=== PATIENT | female | born 1975 | race Caucasian/White ===

== ENCOUNTER 2016-10-06 08:35 | Emergency (ER) | payer OTHER | END 2016-10-06 10:35 | disposition home or self-care (01) | DX: S90.32XA Contusion of left foot, initial encounter (principal); X58.XXXA Exposure to other specified factors, initial encounter; Y99.0 Civilian activity done for income or pay; F17.200 Nicotine dependence, unspecified, uncomplicated ==

== ENCOUNTER 2017-02-16 14:05 | Emergency (ER) | payer OTHER ==
[2017-02-16 14:11] VITALS: BP 123/72
[2017-02-16] MEDS ORDERED: CYCLOBENZAPRINE 10 MG TABLET PO STA (14:28)
--- NOTE | 2017-02-16 14:31 | ED Physician Documentation ---
PD HPI BACK INJURY - Stated complaint Stated Complaint: BACK/NECK PX - History obtained from History obtained from: Patient, Family - History of Present Illness Type of injury: Other (41-year-old woman with a history of chronic and intermittent neck and back problems from previous injuries was doing some housework today and her low back spasmed up on her. The pain is in the lumbar area and does not radiate, there is no weakness, numbness, or tingling. 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, Other - Present Medications Home Medications: Ambulatory Orders Medication Instructions Recorded Confirmed Hydrocodone/Acetaminophen [[place] 1 each PO Q6H PRN #15 tablet 10/06/16 5-325 Tablet] Cyclobenzaprine [Flexeril] 10 mg PO TID PRN #20 tablet 02/16/17 - Allergies Allergies/Adverse Reactions: Allergies Allergy/AdvReac Type Severity Reaction Status Date / Time adhesive Allergy Rash Verified 10/06/16 08:44 latex Allergy Rash Verified 10/06/16 08:44 meperidine HCl * Allergy Nausea Verified 10/06/16 08:44 [From Demerol] - Social History Does the pt smoke?: Yes Smoking Status: Current some day smoker Does the pt drink ETOH?: Yes Does the pt have substance abuse?: No - Immunizations Immunizations are current?: Yes - POLST Patient has POLST: No PD ED PE NORMAL - Vitals Vital signs reviewed: Yes - General General: Alert and oriented X 3, No acute distress - Neck Neck: No bony TTP, Other (Some mild muscular tenderness of the neck but full range of motion) - Back Back: Other (Paralumbar muscle tenderness of the low back without midline tenderness. The patient has equal and normal Achilles and patellar reflexes bilaterally. Normal sensation in all areas of the legs. Patient denies saddle anesthesia. Normal strength in flexion-extension at the ankles, knees, and flexion of the hips.) - Neuro Neuro: Alert and oriented X 3, Normal speech - Psych Psych: Normal mood, Normal affect Results - Vitals Vitals: Vital Signs - 24 hr 02/16/17 14:08 Temperature 36.5 C Heart Rate 90 Respiratory 18 Rate Blood Pressure 123/72 O2 Saturation 99 Oxygen O2 Source Room air PD MEDICAL DECISION MAKING - ED course ED course: The [place] prescription monitoring program was queried with regard to this patient. No concerning findings were found. Departure - Departure Disposition: 01 Home, Self Care Clinical Impression: Back muscle spasm, Neck muscle spasm Condition: Good Record reviewed to determine appropriate education?: Yes Instructions: ED Spasm Back No Trauma, ED Spasm Neck No Injury Prescriptions: Cyclobenzaprine [Flexeril] 10 mg PO TID PRN #20 tablet PRN Reason: Pain Comments: Follow-up with your physician next Sunday as scheduled. Return if worse. Do not drink or drive While taking the prescription muscle relaxer. You can take ibuprofen in addition to this.
[2017-02-16] MEDS ORDERED: CYCLOBENZAPRINE 10 MG TABLET PO ONE (14:39)
== END 2017-02-16 14:57 | disposition home or self-care (01) ==
LOC: ED 14:05
DX: M62.830 Muscle spasm of back (principal); M62.838 Other muscle spasm
CPT/HCPCS: 99283; A9270

== ENCOUNTER 2017-10-21 16:32 | Emergency (ER) | payer OTHER ==
[2017-10-21 16:38] VITALS: BP 123/63
[2017-10-21] MEDS ORDERED: HYDROcod/ACETAM 5/325 MG TABLET PO STA (17:14)
[2017-10-21] MEDS ORDERED: CYCLOBENZAPRINE 10 MG TABLET PO STA (17:14)
--- NOTE | 2017-10-21 17:16 | ED Physician Documentation ---
PD HPI BACK PAIN - Stated complaint Stated Complaint: BACK PX - Chief complaint Chief Complaint: Back Pain - History obtained from History obtained from: Patient - History of Present Illness Timing - onset: Today (This is a young woman with chronic low back pain, bothers her on a daily basis but usually not debilitating. After lifting a heavy piece of fencing at [employer] today the pain is much worse, it is in the left lumbar spine and does not radiate. There is no weakness, numbness, tingling with it. No saddle anesthesia or fevers. No possibility of . 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, Other - Present Medications Home Medications: Ambulatory Orders Medication Instructions Recorded Confirmed Cyclobenzaprine [Flexeril] 10 mg PO TID PRN #20 tablet 10/21/17 HYDROcod/ACETAM 5/325 [[place] 5/325] 1 - 2 ea PO Q6H PRN #15 tablet 10/21/17 Sertraline [Zoloft] 50 mg PO DAILY 10/21/17 10/21/17 - Allergies Allergies/Adverse Reactions: Allergies Allergy/AdvReac Type Severity Reaction Status Date / Time adhesive Allergy Rash Verified 10/21/17 16:38 latex Allergy Rash Verified 10/21/17 16:38 meperidine HCl * Allergy Nausea Verified 10/21/17 16:38 [From Demerol] - Social History Does the pt smoke?: Yes Smoking Status: Current some day smoker Does the pt drink ETOH?: Yes Does the pt have substance abuse?: No - Immunizations Immunizations are current?: Yes - POLST Patient has POLST: No PD ED PE NORMAL - Vitals Vital signs reviewed: Yes - General General: Alert and oriented X 3, No acute distress - Abdomen Abdomen: Normal bowel sounds, Soft, Non tender - Back Back: No spinal TTP, Other (Winces with motion, tender to the left paralumbar musculature. The patient has equal and normal Achilles and patellar reflexes bilaterally. Normal sensation in all areas of the legs. Patient denies saddle anesthesia. Normal strength in flexion-extension at the ankles, knees, and flexion of the hips.) Results - Vitals Vitals: Vital Signs - 24 hr 10/21/17 16:35 Temperature 36.5 C Heart Rate 85 Respiratory 20 Rate Blood Pressure 123/63 O2 Saturation 100 Oxygen O2 Source Room air PD MEDICAL DECISION MAKING - ED course ED course: This patient has seemingly uncomplicated musculoskeletal back pain. The patient has no "red flags." Specifically denies IV drug use, fevers, incontinence, saddle anesthesia. Spinal epidural abscess was considered, given that the patient has no fever, is not diabetic, has no spinal tenderness, does not use IV drugs, and has no bilateral neurologic symptoms, the diagnosis of spinal epidural abscess is considered exceedingly unlikely. The [place] prescription monitoring program was queried with regard to this patient. No concerning findings were found. Departure - Departure Disposition: 01 Home, Self Care Clinical Impression: Back pain Qualifiers: Back pain location: low back pain Chronicity: acute Back pain laterality: left Sciatica presence: without sciatica Qualified Code(s): M54.5 - Low back pain Condition: Good Record reviewed to determine appropriate education?: Yes Instructions: ED Neck Back Pain General Prescriptions: Cyclobenzaprine [Flexeril] 10 mg PO TID PRN #20 tablet PRN Reason: Pain HYDROcod/ACETAM 5/325 [[place] 5/325] 1 - 2 ea PO Q6H PRN #15 tablet PRN Reason: Pain Comments: Call your doctor to arrange a follow-up appointment, make the next available appointment. In the interim, return anytime if worse or if new symptoms develop. Do not drink or drive while taking narcotic pain medication. Note that many narcotic pain relievers also contain Tylenol/acetaminophen. Please ensure that your total dose of acetaminophen from all sources does not exceed 3 g (3000 mg) per day. You may get constipated while on this medication. Take a stool softener such as Colace twice a day while you are on it. Also add an [id number]-[id number] laxative such as senna or MiraLAX on any day that you do not have a bowel movement. If you received a narcotic pain medication or sedative while in the emergency department, do not drive for the next 24 hours.
== END 2017-10-21 17:26 | disposition home or self-care (01) ==
LOC: ED 16:32
DX: M54.5 Low back pain (principal); G89.29 Other chronic pain; X50.0XXA Overexertion from strenuous movement or load, initial encounter; Y93.89 Activity, other specified; Y92.512 Supermarket, store or market as the place of occurrence of the external cause; F17.200 Nicotine dependence, unspecified, uncomplicated
CPT/HCPCS: 99283; A9270

== ENCOUNTER 2017-10-28 14:23 | Emergency (ER) | payer OTHER ==
--- NOTE | 2017-10-28 14:44 | ED Physician Documentation ---
PD HPI BACK INJURY - Stated complaint Stated Complaint: LOWER BACK PX - History obtained from History obtained from: Patient - History of Present Illness Location: Other (She has chronic low back pain. Flared last week after lifting. Worse this AM and worsened when rolling over in bed. Sharp pain in the low lumbar spine. No weak/numb/tingling. 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, Other - Present Medications Home Medications: Ambulatory Orders Medication Instructions Recorded Confirmed Cyclobenzaprine [Flexeril] 10 mg PO TID PRN #20 tablet 10/21/17 HYDROcod/ACETAM 5/325 [[place] 5/325] 1 - 2 ea PO Q6H PRN #15 tablet 10/21/17 Sertraline [Zoloft] 50 mg PO DAILY 10/21/17 10/21/17 Meloxicam [Mobic] 7.5 mg PO BIDWM PRN #15 tablet 10/28/17 diazePAM [Valium] 5 mg PO TID PRN #15 tablet 10/28/17 - Allergies Allergies/Adverse Reactions: Allergies Allergy/AdvReac Type Severity Reaction Status Date / Time adhesive Allergy Rash Verified 10/28/17 14:37 latex Allergy Rash Verified 10/28/17 14:37 meperidine HCl * Allergy Nausea Verified 10/28/17 14:37 [From Demerol] - Social History Does the pt smoke?: Yes Smoking Status: Current every day smoker Does the pt drink ETOH?: Yes Does the pt have substance abuse?: No - Immunizations Immunizations are current?: Yes - POLST Patient has POLST: No PD ED PE NORMAL - Vitals Vital signs reviewed: Yes - General General: Alert and oriented X 3, Other (Uncomfortable and winces with motion) - Abdomen Abdomen: Normal bowel sounds, Soft, Non tender - Back Back: No spinal TTP, Other (Tender to the left paralumbar musculature) - Extremities Extremities: Other (She has nondermatomal decreased but not absent sensation in the left leg throughout. Slightly increased patellar reflex in the left leg compared to the right. Gait is normal.) - Neuro Neuro: Alert and oriented X 3, Normal speech Results - Vitals Vitals: Vital Signs - 24 hr 10/28/17 14:25 Temperature 36.1 C L Heart Rate 105 H Respiratory 16 Rate Blood Pressure 124/66 O2 Saturation 100 Oxygen O2 Source Room air PD MEDICAL DECISION MAKING - ED course ED course: This patient has seemingly uncomplicated musculoskeletal back pain. The patient has no "red flags." Specifically denies IV drug use, fevers, incontinence, saddle anesthesia. Spinal epidural abscess was considered, given that the patient has no fever, is not diabetic, has no spinal tenderness, does not use IV drugs, and has no bilateral neurologic symptoms, the diagnosis of spinal epidural abscess is considered exceedingly unlikely. The [place] prescription monitoring program was queried with regard to this patient. No concerning findings were found. Departure - Departure Disposition: 01 Home, Self Care Clinical Impression: Back pain Qualifiers: Back pain location: low back pain Chronicity: acute Back pain laterality: left Sciatica presence: without sciatica Qualified Code(s): M54.5 - Low back pain Condition: Good Record reviewed to determine appropriate education?: Yes Instructions: ED Low Back Pain Injury Prescriptions: diazePAM [Valium] 5 mg PO TID PRN #15 tablet PRN Reason: Spasms Meloxicam [Mobic] 7.5 mg PO BIDWM PRN #15 tablet PRN Reason: Pain Comments: Discontinue taking Flexeril, the volume is a stronger muscle relaxer. Follow through for physical therapy as arranged by your physician.
[2017-10-28] MEDS ORDERED: KETOROLAC 60 MG/2 ML VIAL IM STA (14:48)
[2017-10-28] MEDS ORDERED: diazePAM INJ 5 MG/ML SYRINGE IM STA (14:48)
[2017-10-28] MEDS ORDERED: LORazepam 2 MG/ML VIAL IM STA (14:55)
[2017-10-28 16:05] VITALS: BP 109/66
== END 2017-10-28 15:57 | disposition home or self-care (01) ==
LOC: ED 14:23
DX: M54.5 Low back pain (principal); F17.200 Nicotine dependence, unspecified, uncomplicated
CPT/HCPCS: 96372; 99283; J2060

== ENCOUNTER 2018-09-11 21:32 | Emergency (ER) | payer OTHER ==
[2018-09-11] MEDS ORDERED: HYDROcod/ACETAM 5/325 MG TABLET PO STA (22:11)
--- NOTE | 2018-09-11 22:17 | ED Physician Documentation ---
History of Present Illness - Stated complaint Stated Complaint: R KNEE PX - Chief complaint Chief Complaint: Ext Problem - History obtained from History obtained from: Patient - History of Present Illness Timing: Other (3 months) Pain level max: 7 Pain level now: 6 - Additonal information Additional information: 43-year-old female with right knee pain for the past 3 months. Has not seen her doctor yet. Has had problems with his knee in the past. An MRI in 2014 showed some cartilage breakdown underneath the patella. Worse with walking. Better with rest and ibuprofen. Has had physical therapy 3 times in the past for this knee. No injury at this time. 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, Other - Present Medications Home Medications: Ambulatory Orders Medication Instructions Recorded Confirmed Cyclobenzaprine [Flexeril] 10 mg PO TID PRN #20 tablet 10/21/17 HYDROcod/ACETAM 5/325 [[place] 5/325] 1 - 2 ea PO Q6H PRN #15 tablet 10/21/17 Sertraline [Zoloft] 50 mg PO DAILY 10/21/17 10/21/17 Meloxicam [Mobic] 7.5 mg PO BIDWM PRN #15 tablet 10/28/17 diazePAM [Valium] 5 mg PO TID PRN #15 tablet 10/28/17 Hydrocodone/Acetaminophen 1 - 2 each PO Q6H PRN #10 tablet 09/11/18 [Hydrocodon-Acetaminophen 5-325] Meloxicam [Mobic] 15 mg PO DAILY PRN #20 tablet 09/11/18 - Allergies Allergies/Adverse Reactions: Allergies Allergy/AdvReac Type Severity Reaction Status Date / Time adhesive Allergy Rash Verified 09/11/18 21:49 latex Allergy Rash Verified 09/11/18 21:49 meperidine HCl * Allergy Nausea Verified 09/11/18 21:49 [From Demerol] - Social History Does the pt smoke?: Yes Smoking Status: Current every day smoker Does the pt drink ETOH?: Yes Does the pt have substance abuse?: No - Immunizations Immunizations are current?: Yes - POLST Patient has POLST: No PD ED PE NORMAL - Vitals Vital signs reviewed: Yes - General General: Alert and oriented X 3, No acute distress - HEENT HEENT: Moist mucous membranes - Derm Derm: Warm and dry - Extremities Extremities: Other (R knee - mild swelling, no bony tenderness. FROM present, increased pain with AROM. decreased with PROM. NVI, ACL, MCL, PCL, LCL are intact. 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 Her patella does appear to laterally displace when bending the knee. We will have her follow-up with her doctor for further care and likely referral to orthopedics for further evaluation. May need a repeat MRI. Do not feel that plain film x-rays will provide much information tonight. We will placed in a hinged knee brace for comfort and see if this takes some pressure off of the knee. We will also prescribe a small amount of pain medication for her. Patient counseled regarding signs and symptoms for which I believe and urgent re-evaluation would be necessary. Patient with good understanding of and agreement to plan and is comfortable going home at this time This document was made in part using voice recognition software. While efforts are made to proofread this document, sound alike and grammatical errors may occur. Departure - Departure Disposition: Home, Self Care Clinical Impression: Right knee pain Qualifiers: Chronicity: acute Qualified Code(s): M25.561 - Pain in right knee Condition: Good Instructions: ED Knee Pain [facility] Follow-Up: [facility] [Provider Group] [facility] [Provider Group] - Within 1 week Prescriptions: Hydrocodone/Acetaminophen [Hydrocodon-Acetaminophen 5-325] 1 - 2 each PO Q6H PRN #10 tablet PRN Reason: pain Meloxicam [Mobic] 15 mg PO DAILY PRN #20 tablet PRN Reason: pain Comments: Return if you worsen. Use the brace for the next 3-4 days. Follow up with your doctor for further care. Do not drink alcohol or drive while on narcotic pain medicine. Note that many narcotic pain relievers also contain tylenol/acetaminophen. Please ensure that your total dose of acetaminophen from all sources does not exceed 3 grams (3000mg) per day. You may constipated on this medication, take a stool softener such as "Colace" twice a day while you are on it. Also recommend a [id number] laxative such as senna or MiraLAX any day that you do not have a bowel movement. If you received narcotic pain medication in the emergency department, do not drive or operate machinery for the next 24 hours.
[2018-09-11 22:30] VITALS: BP 135/67
== END 2018-09-11 22:36 | disposition home or self-care (01) ==
LOC: ED 21:32
DX: M25.561 Pain in right knee (principal); F17.200 Nicotine dependence, unspecified, uncomplicated
CPT/HCPCS: 99283; A9270

== ENCOUNTER 2018-09-20 13:19 | Outpatient (CLI) | payer OTHER ==
--- NOTE | 2018-09-20 16:33 | MRI Report ---
Reason: PAIN IN UNSPECIFIED KNEE Procedure Date: 09/20/2018 Accession Number: [id number] / [id number] Procedure: MRI - Knee RT W/O CPT Code: FULL RESULT: EXAM: RIGHT KNEE MRI WITHOUT CONTRAST EXAM DATE: 09/20/2018 01:35 PM. CLINICAL HISTORY: PAIN IN UNSPECIFIED KNEE. COMPARISON: MRI 10/29/2014. TECHNIQUE: Multiplanar, multisequence T1-weighted and fluid-sensitive sequences of the knee without contrast. Other: None. FINDINGS: Bones: No fracture or bone lesion. Mild bone marrow edema and reactive cyst at the lateral patellar facet, slightly decreased. Articular Cartilage: Small foci of shallow partial thickness cartilage loss and fissuring/tearing central to posterior aspect medial compartment. Shallow partial thickness loss and irregularity/fissuring posterior aspect lateral tibial plateau. Deep partial to full-thickness fissuring/tearing at the mid to inferior patella. These findings are progressed. Medial Meniscus: The medial meniscus is intact. Lateral Meniscus: The lateral meniscus is intact. Cruciate Ligaments: The anterior and posterior cruciate ligaments are intact. Collateral Ligaments: The medial collateral and lateral collateral ligamentous structures are intact. Tendons: The quadriceps, patellar, semimembranosus, and popliteus tendons are unremarkable. Musculature: No edema or fatty atrophy. Other: Small to moderate joint effusion. No popliteal cyst. No loose bodies. The medial and lateral retinacula are intact. 0.8 cm ganglion at the posterior medial margin medial compartment. Minimal subcutaneous edema anteriorly. Mild edema in the superolateral aspect of Hoffa's fat pad and lateral aspect pre-femoral fat pad. New lobulated 1 cm cystic focus in the lateral aspect of Hoffa's fat pad. IMPRESSION: 1. Mild to moderate tricompartmental cartilage loss with fissuring/tearing, slightly progressed. 2. Menisci, cruciate ligaments, and collateral ligaments intact. 3. Small to moderate joint effusion. 4. Reactive edema versus impingement in the superolateral aspect of Hoffa's fat pad and lateral pre-femoral head. 5. New 1.0 cm lobulated focus of fluid, likely ganglion in the prefemoral fat pad. RADIA
== END 2018-09-20 13:20 | disposition home or self-care (01) ==
LOC: DI 13:19
PROVIDERS: ATTEND General Practice
DX: M23.91 Unspecified internal derangement of right knee (principal); M25.461 Effusion, right knee

== ENCOUNTER 2018-12-14 10:38 | Emergency (ER) | payer OTHER ==
[2018-12-14] MEDS ORDERED: LORazepam 0.5 MG TABLET PO STA (11:43)
[2018-12-14 11:59] LABS: BASOPHILS # (AUTO) 0.1 10^3/uL (0.0-0.1); BASOPHILS % (AUTO) 0.7 %; EOSINOPHILS # (AUTO) 0.3 10^3/uL (0.0-0.7); EOSINOPHILS % (AUTO) 3.7 %; HGB - HEMOGLOBIN 14.2 g/dL (12.0-16.0); LYMPHOCYTES # (AUTO) 1.4 10^3/uL (1.5-3.5); MEAN CORPUSCULAR HEMOGLOBIN 31.1 pg (27.0-31.0); MEAN CORPUSCULAR HGB CONC 35.6 g/dL (32.0-36.0); MEAN CORPUSCULAR VOLUME 87.3 fL (81.0-99.0); MEAN PLATELET VOLUME 8.8 fL (7.9-10.8); MONOCYTES # (AUTO) 0.6 10^3/uL (0.0-1.0); MONOCYTES % (AUTO) 8.5 %; NEUTROPHILS # (AUTO) 4.6 10^3/uL (1.5-6.6); NEUTROPHILS % (AUTO) 66.8 %; PLT - PLATELET COUNT 212 10^3/uL (130-450); RED BLOOD COUNT 4.57 10^6/uL (4.20-5.40); WHITE BLOOD COUNT 6.8 x10^3/uL (4.8-10.8)
[2018-12-14 12:15] LABS: ALBUMIN/GLOBULIN RATIO 1.5 (1.0-2.2); BILIRUBIN,TOTAL 0.6 mg/dL (0.2-1.0); CALCIUM 9.3 mg/dL (8.5-10.3); CREATININE 0.8 mg/dL (0.4-1.0); MAGNESIUM 2.1 mg/dL (1.7-2.8); TOTAL PROTEIN 6.7 g/dL (6.7-8.2)
--- NOTE | 2018-12-14 13:00 | ED Physician Documentation ---
PD HPI DYSPNEA - Stated complaint Stated Complaint: SOA - Chief complaint Chief Complaint: General - History obtained from History obtained from: Patient - History of Present Illness Timing - onset: How many weeks ago (1-2) Timing - onset during: Rest (feeling more anxious and also chest palpitations and some tightness, noted mainly when resting or trying to sleep. No symptoms with activity.) Timing - duration: Weeks (1-2) Timing - details: Intermittant Inciting event(s): Other (increased dose of Zoloft about a week prior to symptoms developing. Had some depression and anxiety prior, for which the Zoloft was Rx, and she was feeling better with it. Had dose increased from 50 to 100 as usual progression to full dose after a few weeks and started feeling above symptoms after that increase.). No: Out of meds, URI Improved by: No: Rest (noted more when resting) Worsened by: No: Exertion Associated symptoms: Palpitations (feeling of skipping heart beats, not fast.), Anxiety. No: Fever, Cough, Wheezing, Bilateral edema Recently seen: Not recently seen Review of Systems Constitutional: denies: Fever, Chills Nose: denies: Rhinorrhea / runny nose, Congestion Throat: denies: Sore throat Cardiac: reports: Palpitations. denies: Pedal edema, Calf pain Respiratory: reports: Dyspnea. 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, Other - Present Medications Home Medications: Ambulatory Orders Medication Instructions Recorded Confirmed Cyclobenzaprine [Flexeril] 10 mg PO TID PRN #20 tablet 10/21/17 HYDROcod/ACETAM 5/325 [[place] 5/325] 1 - 2 ea PO Q6H PRN #15 tablet 10/21/17 Sertraline [Zoloft] 50 mg PO DAILY 10/21/17 10/21/17 Meloxicam [Mobic] 7.5 mg PO BIDWM PRN #15 tablet 10/28/17 diazePAM [Valium] 5 mg PO TID PRN #15 tablet 10/28/17 Hydrocodone/Acetaminophen 1 - 2 each PO Q6H PRN #10 tablet 04/03/19 [Hydrocodon-Acetaminophen 5-325] Meloxicam [Mobic] 15 mg PO DAILY PRN #20 tablet 09/11/18 LORazepam [Ativan] 1 mg PO BID PRN #12 tablet 12/14/18 - Allergies Allergies/Adverse Reactions: Allergies Allergy/AdvReac Type Severity Reaction Status Date / Time adhesive Allergy Rash Verified 12/14/18 10:50 latex Allergy Rash Verified 12/14/18 10:50 meperidine HCl * Allergy Nausea Verified 12/14/18 10:50 [From Demerol] - Social History Does the pt smoke?: Yes Smoking Status: Current every day smoker Does the pt drink ETOH?: Yes Does the pt have substance abuse?: No - Immunizations Immunizations are current?: Yes - POLST Patient has POLST: No PD ED PE NORMAL - Vitals Vital signs reviewed: Yes - General General: Alert and oriented X 3, No acute distress, Well developed/nourished - HEENT HEENT: Pharynx benign - Neck Neck: Supple, no meningeal sign, No adenopathy - Cardiac Cardiac: RRR, No murmur, No rub - Respiratory Respiratory: Clear bilaterally - Abdomen Abdomen: Soft, Non tender - Back Back: No CVA TTP - Derm Derm: Normal color, Warm and dry - Extremities Extremities: No tenderness to palpate, Normal ROM s pain, No edema, No calf tenderness / cord - Neuro Neuro: Alert and oriented X 3, No motor deficit, Normal speech Results - Vitals Vitals: Oxygen O2 Source Room air - EKG (time done) 10:58 Rate: Rate (enter#) (90) Rhythm: NSR Wallace: Normal Intervals: Normal [place] QRS: Normal Ischemia: Normal ST segments. No: ST elevation c/w ischemia, ST depression - Labs Labs: Laboratory Tests 12/14/18 12/14/18 12/14/18 11:49 11:49 11:49 WBC 6.8 RBC 4.57 Hgb 14.2 Hct 39.9 MCV 87.3 MCH 31.1 H MCHC 35.6 RDW 12.0 Plt Count 212 MPV 8.8 Neut # (Auto) 4.6 Lymph # (Auto) 1.4 L [place] # (Auto) 0.6 Eos # (Auto) 0.3 Baso # (Auto) 0.1 Absolute Nucleated RBC 0.00 Nucleated RBC % 0.0 Sodium 137 Potassium 4.1 Chloride 108 Carbon Dioxide 20 L Anion Gap 9.0 BUN 14 Creatinine 0.8 Estimated GFR (MDRD) 79 L Glucose 91 Calcium 9.3 Magnesium 2.1 Total Bilirubin 0.6 AST 19 ALT 30 Alkaline Phosphatase 52 Troponin I < 0.04 B-Natriuretic Peptide Total Protein 6.7 Albumin 4.0 Globulin 2.7 Albumin/Globulin Ratio 1.5 Lipase 27 TSH 12/14/18 12/14/18 11:49 11:49 WBC RBC Hgb Hct MCV MCH MCHC RDW Plt Count MPV Neut # (Auto) Lymph # (Auto) [place] # (Auto) Eos # (Auto) Baso # (Auto) Absolute Nucleated RBC Nucleated RBC % Sodium Potassium Chloride Carbon Dioxide Anion Gap BUN Creatinine Estimated GFR (MDRD) Glucose Calcium Magnesium Total Bilirubin AST ALT Alkaline Phosphatase Troponin I B-Natriuretic Peptide 34 Total Protein Albumin Globulin Albumin/Globulin Ratio Lipase TSH 2.47 PD MEDICAL DECISION MAKING - ED course Complexity details: reviewed results, considered differential (has had feeling of anxiety, chest palpitations, and poor sleep about a week after increasing dose of antidepressant. Was doing okay prior to that (anxious but not the same type of symptoms).), d/w patient Departure - Departure Disposition: 01 Home, Self Care Clinical Impression: Palpitations, Anxiety, Medication side effect Dyspnea Qualifiers: Dyspnea type: shortness of breath Qualified Code(s): R06.02 - Shortness of breath Condition: Stable Record reviewed to determine appropriate education?: Yes Instructions: ED Palpitations, ED Panic Attack Follow-Up: Agus Mota MD [Primary Care Provider] - Prescriptions: LORazepam [Ativan] 1 mg PO BID PRN #12 tablet PRN Reason: Anxiety Comments: Hold your Zoloft for 1 to 2 days and then resume at 50 mg instead of the 100. It may take a week or so for the symptoms to decrease if this is a side effect of the medicine. During that time stay well-hydrated. Try to have a little bit of regular exercise several times a week. You can use lorazepam if needed periodically for panic attacks. Follow-up with your primary care later this coming week, call for an appointment. Your basic blood tests including blood count electrolytes blood sugar and thyroid are normal. Regarding the palpitations. Decrease caffeine use a bit more. Again stay well- hydrated. Follow-up with your primary care for this as well and if it continues, he can set up a heart rhythm recording device that records your heart rhythm for 3 to 7 days and see if there is any irregular beats beyond the common "extra beats". Discharge Date/Time: 12/14/18 13:19
[2018-12-14 13:05] VITALS: BP 116/79
== END 2018-12-14 13:19 | disposition home or self-care (01) ==
LOC: ED 10:38
DX: F41.9 Anxiety disorder, unspecified (principal); R00.2 Palpitations; T43.225A Adverse effect of selective serotonin reuptake inhibitors, initial encounter; F17.200 Nicotine dependence, unspecified, uncomplicated
CPT/HCPCS: 36415; 83690; 83735; 83880; 84484; 93005; 99283; A9270; 80053; 84443; 85025

== ENCOUNTER 2019-04-07 12:27 | Emergency (ER) | payer OTHER ==
[2019-04-07 13:33] LABS: BASOPHILS % (AUTO) 0.5 %; EOSINOPHILS # (AUTO) 0.2 10^3/uL (0.0-0.7); EOSINOPHILS % (AUTO) 2.6 %; HGB - HEMOGLOBIN 14.1 g/dL (12.0-16.0); LYMPHOCYTES # (AUTO) 1.3 10^3/uL (1.5-3.5); LYMPHOCYTES % (AUTO) 20.6 %; MEAN CORPUSCULAR HEMOGLOBIN 29.6 pg (27.0-31.0); MEAN CORPUSCULAR HGB CONC 32.8 g/dL (32.0-36.0); MEAN CORPUSCULAR VOLUME 90.3 fL (81.0-99.0); MEAN PLATELET VOLUME 8.3 fL (7.9-10.8); MONOCYTES # (AUTO) 0.4 10^3/uL (0.0-1.0); MONOCYTES % (AUTO) 6.4 %; NEUTROPHILS # (AUTO) 4.5 10^3/uL (1.5-6.6); NEUTROPHILS % (AUTO) 69.6 %; PLT - PLATELET COUNT 256 10^3/uL (130-450); RED BLOOD COUNT 4.76 10^6/uL (4.20-5.40); RED CELL DISTRIBUTION WIDTH 12.1 % (12.0-15.0); WHITE BLOOD COUNT 6.5 x10^3/uL (4.8-10.8)
--- NOTE | 2019-04-07 13:43 | CT Report ---
Reason: Headache no history of the same Procedure Date: 04/07/2019 Accession Number: [id number] / [id number] Procedure: CT - HEAD WO CPT Code: FULL RESULT: EXAM: CT HEAD EXAM DATE: 04/07/2019 01:19 PM. CLINICAL HISTORY: Headache no history of the same. COMPARISON: HEAD W/O 08/05/2013 4:01 PM. TECHNIQUE: Multiaxial CT images were obtained from the foramen magnum to the vertex. Reformats: Sagittal and coronal. IV contrast: None. In accordance with CT protocol optimization, one or more of the following dose reduction techniques were utilized for this exam: automated exposure control, adjustment of mA and/or KV based on patient size, or use of iterative reconstructive technique. FINDINGS: Parenchyma: No intraparenchymal hemorrhage. No evidence of mass, midline shift, or CT findings of infarction. Simmons-white differentiation is distinct. Extraaxial Spaces: Normal for age. No subdural or epidural collections identified. Ventricles: Normal in size and position. Sinuses and Orbits: Imaged paranasal sinuses, orbits, and mastoids show no significant abnormality. Bones: No evidence of fracture or calvarial defect. Other: None. IMPRESSION: Normal head CT. RADIA
[2019-04-07 13:47] LABS: ALBUMIN 4.3 g/dL (3.2-5.5); ALBUMIN/GLOBULIN RATIO 1.5 (1.0-2.2); BILIRUBIN,TOTAL 0.7 mg/dL (0.2-1.0); CALCIUM 9.3 mg/dL (8.5-10.3); CREATININE 0.8 mg/dL (0.4-1.0); TOTAL PROTEIN 7.1 g/dL (6.7-8.2)
--- NOTE | 2019-04-07 15:38 | ED Physician Documentation ---
PD HPI HEADACHE - Stated complaint Stated Complaint: JARVIS - Chief complaint Chief Complaint: Neuro - History obtained from History obtained from: Patient, Family - History of Present Illness Timing - onset: How many weeks ago (1) Timing - onset during: Rest Timing - duration: Weeks (1) Timing - details: Gradual onset, Still present Location: Back, Right, Left Quality: Throbbing Associated symptoms: No: Fever, Stiff neck, Nausea, Vomiting, Weakness, Num bness, Syncope Improved by: Rest Worsened by: Light, Noise, Moving Contributing factors: No: Anticoagulated Similar symptoms before: Diagnosis (neck spasm) Recently seen: Not recently seen - Additional information Additional information: 43 y/o female has developed a headache from the back of her neck to the front over the past week. Review of Systems Constitutional: denies: Fever Eyes: denies: Decreased vision Ears: denies: Ear pain Nose: denies: Rhinorrhea / runny nose, Congestion Throat: denies: Sore throat Cardiac: denies: Chest pain / pressure Respiratory: denies: Dyspnea, Cough GI: reports: Nausea. 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, Other - Present Medications Home Medications: Ambulatory Orders Medication Instructions Recorded Confirmed Cyclobenzaprine [Flexeril] 10 mg PO TID PRN #20 tablet 10/21/17 HYDROcod/ACETAM 5/325 [[place] 5/325] 1 - 2 ea PO Q6H PRN #15 tablet 10/21/17 Sertraline [Zoloft] 50 mg PO DAILY 10/21/17 10/21/17 Meloxicam [Mobic] 7.5 mg PO BIDWM PRN #15 tablet 10/28/17 diazePAM [Valium] 5 mg PO TID PRN #15 tablet 10/28/17 Hydrocodone/Acetaminophen 1 - 2 each PO Q6H PRN #10 tablet 09/11/18 [Hydrocodon-Acetaminophen 5-325] Meloxicam [Mobic] 15 mg PO DAILY PRN #20 tablet 09/11/18 LORazepam [Ativan] 1 mg PO BID PRN #12 tablet 12/14/18 Cyclobenzaprine [Flexeril] 10 mg PO TID PRN #20 tablet 04/07/19 Hydrocodone/Acetaminophen 1 - 2 each PO Q6H PRN #14 tablet 04/07/19 [Hydrocodon-Acetaminophen 5-325] - Allergies Allergies/Adverse Reactions: Allergies Allergy/AdvReac Type Severity Reaction Status Date / Time adhesive Allergy Rash Verified 04/07/19 12:42 latex Allergy Rash Verified 04/07/19 12:42 meperidine HCl * Allergy Nausea Verified 04/07/19 12:42 [From Demerol] - Social History Does the pt smoke?: Yes Smoking Status: Current some day smoker Does the pt drink ETOH?: Yes Does the pt have substance abuse?: No - Immunizations Immunizations are current?: Yes - POLST Patient has POLST: No PD ED PE NORMAL - Vitals Vital signs reviewed: Yes (normal ) - General General: Alert and oriented X 3, No acute distress, Well developed/nourished - HEENT HEENT: Atraumatic, PERRL, EOMI, Ears normal, Other (dry mucous membranes ) - Neck Neck: Supple, no meningeal sign, No bony TTP, Other (There is dense spasm to the tapezius bilaterally with tenderness at the insertion to the occiput. 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, No motor deficit, No sensory deficit, Normal speech Eye Opening: Spontaneous Motor: Obeys Commands Verbal: Oriented GCS Score: 15 - Psych Psych: Normal mood, Normal affect Results - Vitals Vitals: Vital Signs - 24 hr 04/07/19 04/07/19 04/07/19 12:39 16:04 17:15 Temperature 36.7 C 36.4 C L Heart Rate 83 81 83 Respiratory 16 16 16 Rate Blood Pressure 130/77 100/52 L 127/80 O2 Saturation 99 100 100 Oxygen O2 Source Room air - Labs Labs: Laboratory Tests 04/07/19 04/07/19 13:26 13:26 WBC 6.5 RBC 4.76 Hgb 14.1 Hct 43.0 MCV 90.3 MCH 29.6 MCHC 32.8 RDW 12.1 Plt Count 256 MPV 8.3 Neut # (Auto) 4.5 Lymph # (Auto) 1.3 L [place] # (Auto) 0.4 Eos # (Auto) 0.2 Baso # (Auto) 0.0 Absolute Nucleated RBC 0.00 Nucleated RBC % 0.0 Sodium 139 Potassium 3.9 Chloride 106 Carbon Dioxide 27 Anion Gap 6.0 BUN 14 Creatinine 0.8 Estimated GFR (MDRD) 79 L Glucose 94 Calcium 9.3 Total Bilirubin 0.7 AST 16 ALT 24 Alkaline Phosphatase 56 Total Protein 7.1 Albumin 4.3 Globulin 2.8 Albumin/Globulin Ratio 1.5 Lipase 29 - Rads (name of study) CT head Radiology: Prelim report reviewed (Impression: Normal head CT.), EMP read indepedently, See rad report Procedures - IVC sono (time) 1614 Bedside IVC sono: IVC measures (cm) (1.09), IVC collapsed c insp (cm) (complete), Dehydration (est 1-2 liter deficit) PD MEDICAL DECISION MAKING - ED course Complexity details: reviewed results, re-evaluated patient, considered differential, d/w patient, d/w family ED course: 43 y/o female without history of headaches has had headache X 1 week with nausea and vomiting and has tension in her neck. She is dehydrated on interrogation of the IVC and she is given a migraine cocktail including saline, compazine, benadryl, toradal and decadron with improvement. Departure - Departure Disposition: 01 Home, Self Care Clinical Impression: Neck muscle spasm, Tension headache Instructions: ED Headache Tension, ED Neck Back Pain General Follow-Up: Agus Mota MD [Primary Care Provider] - Prescriptions: Cyclobenzaprine [Flexeril] 10 mg PO TID PRN #20 tablet PRN Reason: Spasms Hydrocodone/Acetaminophen [Hydrocodon-Acetaminophen 5-325] 1 - 2 each PO Q6H PRN #14 tablet PRN Reason: pain Forms: Activity restrictions Discharge Date/Time: 04/07/19 17:15
[2019-04-07] MEDS ORDERED: diphenhydrAMINE INJ 50 MG/ML VIAL IVP STA (16:16)
[2019-04-07] MEDS ORDERED: KETOROLAC 30 MG/ML VIAL IVP STA (16:16)
[2019-04-07] MEDS ORDERED: SODIUM CHLORIDE 0.9% 1,000 ML IV ONE (16:16)
[2019-04-07] MEDS ORDERED: PROCHLORPERAZINE 10 MG/2 ML VIAL IVP STA (16:17)
[2019-04-07] MEDS ORDERED: DEXAMETHASONE 10 MG/ML VIAL IVP STA (16:17)
[2019-04-07 17:16] VITALS: BP 127/80
== END 2019-04-07 17:15 | disposition home or self-care (01) ==
LOC: ED 12:27
DX: G44.209 Tension-type headache, unspecified, not intractable (principal); M62.838 Other muscle spasm; M54.2 Cervicalgia; E86.0 Dehydration; F17.200 Nicotine dependence, unspecified, uncomplicated
CPT/HCPCS: 36415; 70450; 80053; 83690; 85025; 96361; 96374; 96375; 99284; 99285; J1200

== ENCOUNTER 2020-02-08 10:28 | Emergency (ER) | payer OTHER ==
[2020-02-08 10:45] VITALS: BP 137/67
[2020-02-08] MEDS ORDERED: KETOROLAC 60 MG/2 ML VIAL IM STA (11:52)
--- NOTE | 2020-02-08 11:56 | ED Physician Documentation ---
History of Present Illness - Stated complaint Stated Complaint: LOW BACK PX - Chief complaint Chief Complaint: Back Pain - History obtained from History obtained from: Patient - Additonal information Additional information: Patient comes emergency department complaining of low back pain which started several days ago. The patient states that she has a history of a back injury as a teenager and has had intermittent problems with her low back ever since. Patient denies any direct injury this time. No strenuous activity, though she did clean the garage yesterday. Patient denies any numbness or tingling in her lower extremities. No bowel or bladder incontinence or retention. Patient states that she has not had any fevers or chills. No dysuria. No other complaints at this time. She describes the pain is midline and indicates that it is in the lumbar region. Review of Systems Ten Systems: 10 systems reviewed and negative Constitutional: reports: Reviewed and negative Eyes: reports: Reviewed and negative Ears: reports: Reviewed and negative Nose: reports: Reviewed and negative Throat: reports: Reviewed and negative Cardiac: reports: Reviewed and negative Respiratory: reports: Reviewed and negative GI: reports: Reviewed and negative : reports: Reviewed and negative Skin: reports: Reviewed and negative Musculoskeletal: reports: Back pain Neurologic: reports: Reviewed and negative Psychiatric: reports: Reviewed and negative Endocrine: reports: Reviewed and negative Immunocompromised: reports: Reviewed and negative PD PAST MEDICAL HISTORY - Past Medical History Past Medical History: Yes Cardiovascular: None Respiratory: None Neuro: None Endocrine/Autoimmune: None GI: Hiatal hernia Musculoskeletal: Chronic back pain - Past Surgical History 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, 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, 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, Other - Present Medications Home Medications: Ambulatory Orders Medication Instructions Recorded Confirmed Cyclobenzaprine [Flexeril] 10 mg PO TID PRN #20 tablet 10/21/17 HYDROcod/ACETAM 5/325 [[place] 5/325] 1 - 2 ea PO Q6H PRN #15 tablet 10/21/17 Sertraline [Zoloft] 50 mg PO DAILY 10/21/17 10/21/17 Meloxicam [Mobic] 7.5 mg PO BIDWM PRN #15 tablet 10/28/17 diazePAM [Valium] 5 mg PO TID PRN #15 tablet 10/28/17 Hydrocodone/Acetaminophen 1 - 2 each PO Q6H PRN #10 tablet 09/11/18 [Hydrocodon-Acetaminophen 5-325] Meloxicam [Mobic] 15 mg PO DAILY PRN #20 tablet 09/11/18 LORazepam [Ativan] 1 mg PO BID PRN #12 tablet 12/14/18 Cyclobenzaprine [Flexeril] 10 mg PO TID PRN #20 tablet 04/07/19 Hydrocodone/Acetaminophen 1 - 2 each PO Q6H PRN #14 tablet 04/07/19 [Hydrocodon-Acetaminophen 5-325] Cyclobenzaprine [Flexeril] 10 mg PO TID PRN #20 tablet 02/08/20 traMADol [Ultram] 50 mg PO Q4-6H PRN #12 tablet 02/08/20 - Allergies Allergies/Adverse Reactions: Allergies Allergy/AdvReac Type Severity Reaction Status Date / Time adhesive Allergy Rash Verified 02/08/20 10:45 latex Allergy Rash Verified 02/08/20 10:45 meperidine HCl * Allergy Nausea Verified 02/08/20 10:45 [From Demerol] - Social History Does the pt smoke?: Yes Smoking Status: Current every day smoker Does the pt drink ETOH?: Yes Does the pt have substance abuse?: No - Immunizations Immunizations are current?: Yes - POLST Patient has POLST: No PD ED PE NORMAL - Vitals Vital signs reviewed: Yes - General General: Alert and oriented X 3, No acute distress - HEENT HEENT: Atraumatic, PERRL, EOMI, Moist mucous membranes - Neck Neck: Supple, no meningeal sign - Cardiac Cardiac: Strong equal pulses - Respiratory Respiratory: No respiratory distress - Back Back: Other (Moderate tenderness palpation over the lumbar spine and immediate paraspinal musculature. 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, No motor deficit, No sensory deficit, Normal speech - Psych Psych: Normal mood, Normal affect Results - Vitals Vitals: Vital Signs - 24 hr 02/08/20 10:43 Temperature 36.5 C Heart Rate 77 Respiratory 16 Rate Blood Pressure 137/67 H O2 Saturation 96 Oxygen O2 Source Room air PD MEDICAL DECISION MAKING - ED course Complexity details: considered differential, d/w patient ED course: Dust with the patient that her symptoms are most likely related to benign atraumatic back pain, which could be a flareup of her previous injury site or could be due to low back strain or muscle spasm/irritation from normal activities. She states she has been taking ibuprofen at home, which has not been helping, so I will prescribe her Flexeril and a short course of analgesia. Patient is given Toradol here in the emergency department. We have discussed home management of the symptoms, including massage, which the patient has scheduled in a couple days. We have discussed the usual indications for return. Departure - Departure Disposition: Home, Self Care Clinical Impression: Lumbar back pain Condition: Stable Instructions: ED Spasm Back No Trauma Prescriptions: Cyclobenzaprine [Flexeril] 10 mg PO TID PRN #20 tablet PRN Reason: Spasms traMADol [Ultram] 50 mg PO Q4-6H PRN #12 tablet PRN Reason: Pain
== END 2020-02-08 12:05 | disposition home or self-care (01) ==
LOC: ED 10:28
DX: M54.5 Low back pain (principal); F17.200 Nicotine dependence, unspecified, uncomplicated
CPT/HCPCS: 96372; 99283; 99284

== ENCOUNTER 2020-04-03 13:00 | Emergency (ER) | payer OTHER ==
[2020-04-03 13:07] VITALS: BP 140/74
[2020-04-03] MEDS ORDERED: CHERRY SYRUP 10 ML UDC PO ONE (13:32)
[2020-04-03] MEDS ORDERED: DEXAMETHASONE 10 MG/ML VIAL PO STA (13:32)
[2020-04-03] MEDS ORDERED: MELOXICAM 7.5 MG TABLET PO STA (13:32)
--- NOTE | 2020-04-03 13:35 | ED Physician Documentation ---
History of Present Illness - Stated complaint Stated Complaint: RT ARM NUMBNESS - Chief complaint Chief Complaint: General - History obtained from History obtained from: Patient - History of Present Illness Timing: How many weeks ago (1) Pain level max: 0 Pain level now: 0 - Additonal information Additional information: Patient is a 44-year-old female who presents to the emergency department with right arm paresthesias. They start at the elbow and go down to her hand. She states it is the entirety of the forearm and entirety of the hand, all fingers are involved. She recently started doing abdulkadir art. This involves repetitive motion at the elbow. It used to last for a few minutes then a few hours, now lasts all day. No neck or back pain. No headache. No trauma. Patient is right-handed. 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 - Present Medications Home Medications: Ambulatory Orders Medication Instructions Recorded Confirmed Cyclobenzaprine [Flexeril] 10 mg PO TID PRN #20 tablet 10/21/17 HYDROcod/ACETAM 5/325 [[place] 5/325] 1 - 2 ea PO Q6H PRN #15 tablet 10/21/17 Sertraline [Zoloft] 50 mg PO DAILY 10/21/17 10/21/17 Meloxicam [Mobic] 7.5 mg PO BIDWM PRN #15 tablet 10/28/17 diazePAM [Valium] 5 mg PO TID PRN #15 tablet 10/28/17 Hydrocodone/Acetaminophen 1 - 2 each PO Q6H PRN #10 tablet 09/11/18 [Hydrocodon-Acetaminophen 5-325] Meloxicam [Mobic] 15 mg PO DAILY PRN #20 tablet 09/11/18 LORazepam [Ativan] 1 mg PO BID PRN #12 tablet 12/14/18 Cyclobenzaprine [Flexeril] 10 mg PO TID PRN #20 tablet 04/07/19 Hydrocodone/Acetaminophen 1 - 2 each PO Q6H PRN #14 tablet 04/07/19 [Hydrocodon-Acetaminophen 5-325] Cyclobenzaprine [Flexeril] 10 mg PO TID PRN #20 tablet 02/08/20 traMADol [Ultram] 50 mg PO Q4-6H PRN #12 tablet 02/08/20 Meloxicam [Mobic] 7.5 mg PO BID PRN #20 tablet 04/03/20 predniSONE [Deltasone] 10 mg PO [id number] #42 tab 04/03/20 - Allergies Allergies/Adverse Reactions: Allergies Allergy/AdvReac Type Severity Reaction Status Date / Time adhesive Allergy Rash Verified 04/03/20 13:07 latex Allergy Rash Verified 04/03/20 13:07 meperidine HCl * Allergy Nausea Verified 04/03/20 13:07 [From Demerol] - Social History Does the pt smoke?: Yes Smoking Status: Current every day smoker Does the pt drink ETOH?: Yes Does the pt have substance abuse?: No - Immunizations Immunizations are current?: Yes - POLST Patient has POLST: No PD ED PE NORMAL - Vitals Vital signs reviewed: Yes - General General: Alert and oriented X 3, No acute distress, Well developed/nourished - HEENT HEENT: PERRL, Moist mucous membranes - Neck Neck: Supple, no meningeal sign, No bony TTP (No step-off or deformity., negative spurling test) - Cardiac Cardiac: Strong equal pulses - Respiratory Respiratory: No respiratory distress - Derm Derm: Warm and dry - Extremities Extremities: No deformity, No tenderness to palpate, Normal ROM s pain, Other (Normal examination of the right upper extremity. Full range of motion of all major joints. No swelling. No redness. Neurovascularly intact. 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 We will trial her on anti-inflammatories, short course of steroids and have her follow-up with her doctor. No evidence of MS, stroke, aortic dissection, spinal compression. Patient counseled regarding signs and symptoms for which I believe and urgent re-evaluation would be necessary. Patient with good understanding of and agreement to plan and is comfortable going home at this time This document was made in part using voice recognition software. While efforts are made to proofread this document, sound alike and grammatical errors may occur. Departure - Departure Disposition: Home, Self Care Clinical Impression: Paresthesia Condition: Good Instructions: ED Paraesthesias Follow-Up: Agus Mota MD [Primary Care Provider] - Within 1 week Prescriptions: predniSONE [Deltasone] 10 mg PO [id number] #42 tab Meloxicam [Mobic] 7.5 mg PO BID PRN #20 tablet PRN Reason: Pain Comments: The tingling sensation you are experiencing is likely secondary to inflammation about the elbow. We will trial you on steroids and anti-inflammatories. Please limit repetitive motion. Follow-up with your doctor for further care.
== END 2020-04-03 13:45 | disposition home or self-care (01) ==
LOC: ED 13:00
DX: R20.2 Paresthesia of skin (principal); M70.831 Other soft tissue disorders related to use, overuse and pressure, right forearm; Y93.89 Activity, other specified; F17.200 Nicotine dependence, unspecified, uncomplicated
CPT/HCPCS: 99282; 99284; A9270

== ENCOUNTER 2020-08-14 17:32 | Emergency (ER) | payer OTHER ==
[2020-08-14 17:46] VITALS: BP 155/90
[2020-08-14 18:02] LABS: BILIRUBIN,URINE NEGATIVE (NEGATIVE); GLUCOSE, URINE (UA) NEGATIVE (NEGATIVE); KETONES,URINE (UA) TRACE mg/dL (NEGATIVE); LEUKOCYTE ESTERASE, URINE SMALL (NEGATIVE); NITRITE,URINE NEGATIVE (NEGATIVE); OCCULT BLOOD,URINE LARGE (NEGATIVE); PROTEIN,URINE NEGATIVE (NEGATIVE); UROBILINOGEN,URINE 0.2 (NORMAL) E.U./dL (NORMAL)
[2020-08-14 18:04] LABS: CLARITY,URINE SL. CLOUDY (CLEAR); HCG UR QUAL NEGATIVE
[2020-08-14 18:15] LABS: BACTERIA,URINE Few /HPF (None Seen); RBC,URINE TNTC /HPF (0-5); SQUAMOUS EPITHELIAL CELL,UR FEW Squamous (<= Few); WBC CLUMPS,URINE PRESENT; WBC,URINE >25 /HPF (0-5)
[2020-08-14] MEDS ORDERED: NITROFURANTOIN MACRO 100 MG CAPSULE PO STA (18:15)
[2020-08-14] MEDS ORDERED: PHENAZOPYRIDINE 100 MG TABLET PO STA (18:15)
--- NOTE | 2020-08-14 18:16 | ED Physician Documentation ---
PD HPI FEMALE - Stated complaint Stated Complaint: FEMALE - Chief complaint Chief Complaint: UTI - History obtained from History obtained from: Patient (About 2 weeks ago she developed dysuria and urgency without flank pain or fevers. She took an grzq-mfr-ejlayky product which helps, but the symptoms are recurrent over the last few days. 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, Other - Present Medications Home Medications: Ambulatory Orders Medication Instructions Recorded Confirmed Amitriptyline [Elavil] 25 mg PO QPM 08/14/20 08/14/20 Nitrofurantoin Monohyd/M-Cryst 100 mg PO BID #10 cap 08/14/20 [Macrobid 100 mg Capsule] Phenazopyridine HCl [Pyridium] 200 mg PO TID PRN #6 tablet 08/14/20 - Allergies Allergies/Adverse Reactions: Allergies Allergy/AdvReac Type Severity Reaction Status Date / Time adhesive Allergy Rash Verified 08/14/20 17:39 latex Allergy Rash Verified 08/14/20 17:39 meperidine HCl * Allergy Nausea Verified 08/14/20 17:39 [From Demerol] - Social History Does the pt smoke?: Yes Smoking Status: Current every day smoker Does the pt drink ETOH?: Yes Does the pt have substance abuse?: No - Immunizations Immunizations are current?: Yes - POLST Patient has POLST: No PD ED PE NORMAL - Vitals Vital signs reviewed: Yes - General General: Alert and oriented X 3, No acute distress - Abdomen Abdomen: Soft, Non tender - Back Back: No CVA TTP - Neuro Neuro: Alert and oriented X 3, Normal speech Results - Vitals Vitals: Vital Signs - 24 hr 08/14/20 17:39 Temperature 36.9 C Heart Rate 90 Respiratory 18 Rate Blood Pressure 155/90 H O2 Saturation 100 Oxygen O2 Source Room air - Labs Labs: Laboratory Tests 08/14/20 17:44 Urine Color YELLOW Urine Clarity SL. CLOUDY Urine pH 5.0 Ur Specific [place] >=1.030 H Urine Protein NEGATIVE Urine Glucose (UA) NEGATIVE Urine Ketones TRACE Urine Occult Blood LARGE H Urine Nitrite NEGATIVE Urine Bilirubin NEGATIVE Urine Urobilinogen 0.2 (NORMAL) Ur Leukocyte Esterase SMALL H Ur Microscopic Review INDICATED Urine Culture Comments Not Reportable Urine HCG, Qual NEGATIVE Departure - Departure Disposition: 01 Home, Self Care Clinical Impression: Cystitis Condition: Good Record reviewed to determine appropriate education?: Yes Instructions: ED UTI Cystitis Female Prescriptions: Nitrofurantoin Monohyd/M-Cryst [Macrobid 100 mg Capsule] 100 mg PO BID #10 cap Phenazopyridine HCl [Pyridium] 200 mg PO TID PRN #6 tablet PRN Reason: dysuria Comments: We will culture your urine, the results should be done in 48-72 hours. If an antibiotic change is necessary we will call you. Return if worse in the meantime, especially if you develop increasing flank pain, fevers, or cannot keep down the medication.
== END 2020-08-14 18:25 | disposition home or self-care (01) ==
LOC: ED 17:32
DX: N30.90 Cystitis, unspecified without hematuria (principal); F17.200 Nicotine dependence, unspecified, uncomplicated
CPT/HCPCS: 81001; 81025; 87086; 87181; 99283; A9270; 81003

== ENCOUNTER 2020-11-02 | Emergency (ER) | payer OTHER ==
--- OUTSIDE RECORDS SUMMARY | 2020-11-02 15:01 | EXTERNAL MEDICAL SUMMARY RPT | Continuity of Care Document ---
:1975 Demographics Phone Unavailable Preferred Language Unknown Marital Status Unknown Zoroastrianism Affiliation Unknown Race Unknown Ethnic Group Unknown Author Organization [facility] Address [address] [place] [address] Phone Allergies Encounters Medications Problems Results
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
--- OUTSIDE RECORDS SUMMARY | 2020-11-02 15:53 | EXTERNAL MEDICAL SUMMARY RPT | Continuity of Care Document ---
:1975 Demographics Phone Unavailable Preferred Language Unknown Marital Status Unknown Amish Affiliation Unknown Race Unknown Ethnic Group Unknown Author Organization [facility] Address [address] [place] [address] Phone Allergies Encounters Medications Problems Results
== END 2020-11-02 15:57 | disposition home or self-care (01) ==
CPT/HCPCS: 99281; 99284

== ENCOUNTER 2022-01-03 13:48 | Emergency (ER) | payer OTHER ==
[2022-01-03 14:05] VITALS: BP 115/67
--- NOTE | 2022-01-03 14:36 | XRAY Report ---
PROCEDURE: Knee 4 View RT INDICATIONS: pain TECHNIQUE: 4 views of the right knee(s) were acquired. COMPARISON: 09/27/2014 FINDINGS: Bones: No acute fractures or dislocations. No suspicious bony lesions. Minimal tricompartmental ost eoarthrosis of the right knee. Soft tissues: No joint effusion. No suspicious soft tissue calcifications. IMPRESSION: Right knee without acute fracture or dislocation. Minimal tricompartmental right knee os teoarthrosis. Reviewed by: Jonathan Irizarry MD on 01/03/2022 2:35 PM PDT Approved by: Jonathan Irizarry MD on 01/03/2022 2:35 PM PDT Station ID: [id number]
--- NOTE | 2022-01-03 14:59 | ED Physician Documentation ---
History of Present Illness - Stated complaint Stated Complaint: R KNEE PX - Chief complaint Chief Complaint: Ext Problem - Additonal information Additional information: 46-year-old female presents emergency department for evaluation of 1 week acute right knee pain. She only really notices the pain when she is getting up off the floor after changing her son's diaper. She denies that she has any pain with ambulation sitting or rest. No recent falls trauma or twist. No fever swelling or erythema. She has reportedly been seen by her primary care doctor for arthritis in the left knee and wonders if she is developing arthritis now in the right knee. 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, Other - Present Medications Home Medications: Ambulatory Orders Medication Instructions Recorded Confirmed Amitriptyline [Elavil] 25 mg PO QPM 08/14/20 01/03/22 - Allergies Allergies/Adverse Reactions: Allergies Allergy/AdvReac Type Severity Reaction Status Date / Time adhesive Allergy Rash Verified 01/03/22 14:00 latex Allergy Rash Verified 01/03/22 14:00 meperidine HCl * Allergy Nausea Verified 01/03/22 14:00 [From Demerol] - Social History Does the pt smoke?: Yes Smoking Status: Current every day smoker Does the pt drink ETOH?: Yes Does the pt have substance abuse?: No - Immunizations Immunizations are current?: Yes - POLST Patient has POLST: No PD ED PE NORMAL - General General: Alert and oriented X 3, No acute distress, Well developed/nourished - HEENT HEENT: Atraumatic - Cardiac Cardiac: RRR, No murmur - Respiratory Respiratory: No respiratory distress - Derm Derm: Normal color, Warm and dry, No rash - Extremities Extremities: No deformity, Other (Mild tenderness with palpation of the right lateral joint line. No laxity. Normal flexion extension. No swelling or erythema. Normal gait.) - Neuro Neuro: Alert and oriented X 3, reservations manager 2-12 intact Eye Opening: Spontaneous Motor: Obeys Commands Verbal: Oriented GCS Score: 15 Results - Vitals Vitals: Vital Signs - 24 hr 01/03/22 14:00 Temperature 36.6 C Heart Rate 92 Respiratory 16 Rate Blood Pressure 115/67 O2 Saturation 100 Oxygen O2 Source Room air - Rads (name of study) Right knee Radiology: Final report received (Tricompartmental arthritis mild) PD MEDICAL DECISION MAKING - ED course Complexity details: considered differential, d/w patient ED course: 46-year-old female presents emergency department for evaluation of acute right knee pain over the last week. She really only notices the pain when she is getting up off the floor after changing her son's diaper. X-ray of the knee shows mild tricompartmental arthritis. The exam of the knee however is relatively normal and benign. She has normal gait. No laxity was elicited. Minimal tenderness at the lateral joint line with deep palpation only. No effusion is present. Clinically this does not present as an infectious or ligamentous injury discussed that the symptoms occur only when changing the diaper from the floor advised her to start standing to change the diapers. Discussed longer-term follow-up with a primary care provider. As needed Motrin or Tylenol. Emergent return precautions discussed Departure - Departure Disposition: 01 Home, Self Care Clinical Impression: Knee pain, right Qualifiers: Chronicity: acute Qualified Code(s): M25.561 - Pain in right knee Condition: Stable Record reviewed to determine appropriate education?: Yes Comments: Love kent are seen today in the emergency department for pain on the lateral side of your right knee. The exam of your knee is relatively normal. The x-ray however does show an early arthritis. I do recommend that you begin changing your son's diaper on a bed or changing table. In general he can take Tylenol or ibuprofen for the knee discomfort. In the longer term management of arthritis is best done with conservative treatment such as ibuprofen or Tylenol. Continue to stay as active as you can. Occasionally RUMA wrapping the knee for any worsening pain can be helpful. Follow-up with your primary care provider. In the longer term physical therapy and/or consideration of an MRI can be done if symptoms acutely worsen.
== END 2022-01-03 15:19 | disposition home or self-care (01) ==
LOC: ED 13:48
DX: M25.561 Pain in right knee (principal); F17.200 Nicotine dependence, unspecified, uncomplicated
CPT/HCPCS: 99282; 99283

== ENCOUNTER 2022-02-07 08:00 | Outpatient (CLI) | payer OTHER ==
--- NOTE | 2022-02-07 18:19 | XRAY Report ---
PROCEDURE: Knee 4 View BILAT INDICATIONS: BILAT KNEE PAIN TECHNIQUE: 4 views of the bilateral knee(s) were acquired. COMPARISON: None. FINDINGS: Right side: Trace arthrosis. Small joint effusion. No acute fracture or dislocation. Left side: Trace arthrosis. Small joint effusion. No acute fracture or dislocation. IMPRESSION: Trace arthrosis is seen bilaterally. There are small joint effusions. If there is high c oncern for internal derangement, consider MRI evaluation. Reviewed by: Nav Levy MD on 02/07/2022 6:18 PM PDT Approved by: Nav Levy MD on 02/07/2022 6:18 PM PDT Station ID: [id number]
== END 2022-02-07 23:59 | disposition home or self-care (01) ==
LOC: DI.WOS 08:00
PROVIDERS: ATTEND Physician Assistant Surgical
DX: M17.0 Bilateral primary osteoarthritis of knee (principal); M25.461 Effusion, right knee; M25.462 Effusion, left knee

== ENCOUNTER 2023-01-11 13:26 | Emergency (ER) | payer OTHER ==
--- NOTE | 2023-01-11 14:15 | XRAY Report ---
PROCEDURE: Shoulder 3 View RT INDICATIONS: shoulder pain, no injury TECHNIQUE: 3 views of the shoulder were acquired. COMPARISON: None. FINDINGS: Bones: No fractures or dislocations. No suspicious bony lesions. Visualized ribs appear intact. Soft tissues: No suspicious soft tissue calcifications. IMPRESSION: No visualized acute fracture or dislocation. However, occult injury cannot be excluded. Recommend carolynn rt interval imaging follow-up in 7-10 days as clinically indicated for additional evaluation. Reviewed by: Jennifer Vega MD on 01/11/2023 2:14 PM PDT Approved by: Jennifer Vega MD on 01/11/2023 2:14 PM PDT Station ID: [id number]
--- NOTE | 2023-01-11 14:16 | ED Physician Documentation ---
PD HPI UPPER EXT INJURY - Stated complaint Stated Complaint: RT SHOULDER PX - Chief complaint Chief Complaint: Ext Problem - History obtained from History obtained from: Patient - History of Present Illness Location: Right, Shoulder Type of injury: No: Fall, Twist, Blunt / blow Timing - onset: How many months ago (has had some pains of it with use for 4 months, more consistent the past 1-2 weeks without specific injury noted. Has hd it wax and wane, more consistent now. Pain with ROM. Hurting front and back in shoulder.) Timing - duration: Months Timing - details: Gradual onset, Still present, Intermittant Worsened by: Moving, Palpating (both anterior and posterior. Not as much over the deltoid.) Associated symptoms: No: Weakness, Numbness, Swelling, Discolored Similar symptoms before: Has not had sx before Recently seen: Clinic (walk in and Rx with Meloxicam bid for a week without any change in pain.) Review of Systems Constitutional: denies: Fever, Chills Nose: denies: Rhinorrhea / runny nose, Congestion Throat: denies: Sore throat Cardiac: denies: Chest pain / pressure Respiratory: denies: Dyspnea, Cough Skin: denies: Rash, Lesions Musculoskeletal: denies: Extremity swelling Neurologic: denies: Focal weakness, Numbness PD PAST MEDICAL HISTORY - Past Medical History Cardiovascular: None Respiratory: None Neuro: None Endocrine/Autoimmune: None GI: Hiatal hernia Musculoskeletal: Chronic back pain - Past Surgical History 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, 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, 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, Other - Present Medications Home Medications: Ambulatory Orders Medication Instructions Recorded Confirmed Amitriptyline [Elavil] 25 mg PO QPM 08/14/20 01/11/23 HYDROcod/ACETAM 5/325 [[facility] 5/325] 1 ea PO Q8H PRN #20 tablet 01/11/23 Meloxicam 15 mg PO DAILY 01/11/23 01/11/23 dexAMETHasone [Decadron] 4 mg PO DAILY #5 tablet 01/11/23 - Allergies Allergies/Adverse Reactions: Allergies Allergy/AdvReac Type Severity Reaction Status Date / Time adhesive Allergy Rash Verified 01/11/23 13:29 latex Allergy Rash Verified 01/11/23 13:29 meperidine HCl * Allergy Nausea Verified 01/11/23 13:29 [From Demerol] - Social History Does the pt smoke?: Yes Smoking Status: Current every day smoker Does the pt drink ETOH?: Yes Does the pt have substance abuse?: No - Immunizations Immunizations are current?: Yes - POLST Patient has POLST: No PD ED PE NORMAL - Vitals Vital signs reviewed: Yes - General General: Alert and oriented X 3, No acute distress, Well developed/nourished - Cardiac Cardiac: RRR, No murmur - Respiratory Respiratory: Clear bilaterally - Abdomen Abdomen: Normal bowel sounds, Soft, Non tender - Back Back: No spinal TTP - Derm Derm: Normal color, Warm and dry - Extremities Extremities: Other (right shoulder tender both anterior and posterior, even to lateral clavicle. No rash nor sores. Not tender over deltoid/bursal area. Pain with ROM, hilario reaching to back, ext rotation, abduction against resistance (worse with palm up than down). ) - Neuro Neuro: No motor deficit, No sensory deficit Results - Vitals Vitals: Oxygen O2 Source Room air - Rads (name of study) shoulder xray Relevant Findings:: Prelim report reviewed, EMP independent interpretation of test (no acute bony process seen. ) PD Medical Decision Making - ED course Complexity details: reviewed results, considered differential (consider bony process such as arthritis, bone lesion, etc. But much more likely soft tissue with elements sounding rotator cuff tendonitis, but also pain anteriorly, so muscular there. Not tender over bursa/laterally. ), d/w patient, other (will refer to Ortho. Start with sling and ROM, steroids as NSAIDs have not helped. There is not specific localized area for injection per se. pain meds. ) Departure - Departure Disposition: 01 Home, Self Care Clinical Impression: Tendonitis of shoulder, right Shoulder pain Qualifiers: Chronicity: chronic Laterality: right Qualified Code(s): M25.511 - Pain in right shoulder Condition: Stable Record reviewed to determine appropriate education?: Yes Follow-Up: ELLIOT RICHTER PA [Primary Care Provider] - [facility] [Provider Group] Prescriptions: dexAMETHasone [Decadron] 4 mg PO DAILY #5 tablet HYDROcod/ACETAM 5/325 [[facility] 5/325] 1 ea PO Q8H PRN #20 tablet PRN Reason: Pain Comments: Your x-ray is normal so no obvious bony abnormality. However the majority of shoulder pains are none bone related and include the muscles and ligaments and joint capsule. Your pain seems likely related to some rotator cuff tendinitis. However components of it sound like other muscles and perhaps some involvement of the cartilage in the shoulder joint. At this point I would have you consider using the sling through the day to help support and reduce motion in the shoulder. Be sure to have it out of the sling at times with gentle range of motion so it does not become stiff. Try to limit the amount of lifting and use. Regarding lifting your son up, you might consider getting a strap or gait belt to help lift him up into a standing position mechanically/ergonomically better for you and your . We can try different anti-inflammatory for your shoulder over the next 5 to 7 days. Continue with Tylenol every 4-6 hours. Add hydrocodone every 8 hours if needed for worse pain. I sent your prescription to [facility] in [place]. Follow-up with the orthopedic clinic, call today or tomorrow for an appointment presumably they will get to see you next week. They can decide on other treatment options as well as if any advanced imaging is indicated such as MRI. I am prescribing a short course of narcotic pain medication for you. These are potentially dangerous and addictive medications that should be used carefully. These medications may constipate you. Take an [id number] stool softener such as docusate twice daily with plenty of water while taking these medications. If you go 24 hours without a bowel movement, take boko-dib-itjzryb MiraLAX, per package instructions. Do not drink or drive while taking these medications. If you received narcotic or sedating medications while in the emergency department do not drive for 24 hours. Store this medication in a safe, secure place and out of reach of children. It is a violation of federal law to give or sell this medication to another person or to use in a manner other than prescribed. The ED will not refill narcotic prescriptions, including prescriptions lost or stolen. You can dispose of unwanted medications at the [facility]'s office or at several pharmacies such as [facility]. Forms: PCP List Discharge Date/Time: 01/11/23 15:06
[2023-01-11] MEDS ORDERED: dexAMETHasone 4 MG TABLET PO STA (14:38)
[2023-01-11 15:11] VITALS: BP 138/65
== END 2023-01-11 15:06 | disposition home or self-care (01) ==
LOC: ED 13:26
DX: M77.8 Other enthesopathies, not elsewhere classified (principal); F17.200 Nicotine dependence, unspecified, uncomplicated; Z91.040 Latex allergy status
CPT/HCPCS: 73030; 99283; 99284; J8540

== ENCOUNTER 2023-02-13 08:06 | Emergency (ER) | payer OTHER ==
[2023-02-13 08:26] VITALS: BP 133/90; O2SAT 99
--- NOTE | 2023-02-13 08:45 | ED Physician Documentation ---
PD HPI UPPER EXT INJURY - Stated complaint Stated Complaint: RT SHOULDER PX - Chief complaint Chief Complaint: General - History obtained from History obtained from: Patient - History of Present Illness Location: Right, Shoulder, Other (radiating to right pectoral area.) Type of injury: No: Fall, Twist Where injury occurred: Home Timing - onset: How many weeks ago (3) Timing - duration: Weeks (3) Timing - details: Gradual onset, Still present (increasing) Improved by: No: Meds Associated symptoms: No: Weakness, Numbness Review of Systems Constitutional: denies: Fever, Chills Skin: denies: Rash, Lesions PD PAST MEDICAL HISTORY - Past Medical History Cardiovascular: None Respiratory: None Neuro: None Endocrine/Autoimmune: None GI: Hiatal hernia Musculoskeletal: Chronic back pain - Past Surgical History 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, 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, 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, Other - Present Medications Home Medications: Ambulatory Orders Medication Instructions Recorded Confirmed Amitriptyline [Elavil] 25 mg PO QPM 08/14/20 01/11/23 HYDROcod/ACETAM 5/325 [[place] 5/325] 1 ea PO Q8H PRN #20 tablet 01/11/23 Meloxicam 15 mg PO DAILY 01/11/23 01/11/23 dexAMETHasone [Decadron] 4 mg PO DAILY #5 tablet 01/11/23 Diclofenac Sodium 50 mg PO BID #30 tab 02/13/23 oxyCODONE [Roxicodone] 5 mg PO Q6H PRN #20 tablet 02/13/23 - Allergies Allergies/Adverse Reactions: Allergies Allergy/AdvReac Type Severity Reaction Status Date / Time adhesive Allergy Rash Verified 01/11/23 13:29 latex Allergy Rash Verified 01/11/23 13:29 meperidine HCl * Allergy Nausea Verified 01/11/23 13:29 [From Demerol] - Social History Does the pt smoke?: Yes Smoking Status: Current every day smoker Does the pt drink ETOH?: Yes Does the pt have substance abuse?: No - Immunizations Immunizations are current?: Yes - POLST Patient has POLST: No PD ED PE NORMAL - General General: Alert and oriented X 3, Well developed/nourished, Other (appears uncomfortable, holding right shoulder. She says prior sling did not help so not using it. ) - Neck Neck: No bony TTP, Other (suprascapular area and toward the clavicle with soft tissue tenderness. No redness/rash. ) - Cardiac Cardiac: RRR, No murmur - Respiratory Respiratory: Clear bilaterally Results - Vitals Vitals: Oxygen O2 Source Room air PD Medical Decision Making - ED course Complexity details: reviewed old records (prior visit toED.), considered differential (onset and worsening, staying in same pattern area, could consider herpetic neuralgia though no rash. Otherwise muscular or nerve impingement. ), d/w patient Departure - Departure Disposition: 01 Home, Self Care Clinical Impression: Shoulder pain, Tendonitis of shoulder, right Condition: Stable Record reviewed to determine appropriate education?: Yes Prescriptions: Diclofenac Sodium 50 mg PO BID #30 tab oxyCODONE [Roxicodone] 5 mg PO Q6H PRN #20 tablet PRN Reason: Pain Comments: We can try a different anti-inflammatory to see if that helps a little bit better. Continue with decreased use of the shoulder and activity as tolerated. Gentle range of motion if you can to reduce stiffening. I wrote prescription for diclofenac as a different anti-inflammatory to try. Take it with food twice daily. To that add Tylenol 500 to 650 mg 4 times daily to help with pain as well. To that add the oxycodone pain medicine every 6 hours if needed for worse pain. Follow-up with orthopedics on the as planned. Recheck as needed here prior to that. I sent your prescriptions to your preferred pharmacy, [facility] in [place]. My narcotic instructions I am prescribing a short course of narcotic pain medication for you. These are potentially dangerous and addictive medications that should be used carefully. These medications may constipate you. Take an ahjl-sis-tvgebco stool softener s uch as docusate twice daily with plenty of water while taking these medications. If you go 24 hours without a bowel movement, take [id number] MiraLAX, per package instructions. Do not drink or drive while taking these medications. If you received narcotic or sedating medications while in the emergency department do not drive for 24 hours. Store this medication in a safe, secure place and out of reach of children. It is a violation of federal law to give or sell this medication to another person or to use in a manner other than prescribed. The ED will not refill narcotic prescriptions, including prescriptions lost or stolen. You can dispose of unwanted medications at the [facility] office or at several pharmacies such as [facility]. Forms: PCP List Discharge Date/Time: 02/13/23 09:18
== END 2023-02-13 09:18 | disposition home or self-care (01) ==
LOC: ED 08:06
DX: M75.92 Shoulder lesion, unspecified, left shoulder (principal); F17.200 Nicotine dependence, unspecified, uncomplicated
CPT/HCPCS: 99282; 99283

== ENCOUNTER 2023-03-27 12:37 | Outpatient (CLI) | payer OTHER ==
--- NOTE | 2023-03-27 21:42 | MRI Report ---
PROCEDURE: SHOULDER WO - RT INDICATIONS: RIGHT SHOULDER PAIN TECHNIQUE: Noncontrast oblique coronal T2 fast spin echo with fat saturation, oblique sagittal T1 spin echo and T2 fast spin echo with fat saturation, axial T1 spin echo and T2 fast spin echo with fat saturation t hrough the shoulder. COMPARISON: Shoulder radiograph dated 01/11/2023. FINDINGS: Image quality: Excellent. Rotator cuff: Moderate grade bursal surface partial-thickness tear involving distal supraspinatus at its insertion on humeral head is seen extending to musculotendinous junction. Distal infraspinatus te ndinosis and low-grade articular surface partial-thickness tear is noted at its insertion on humeral head. Low-grade intrasubstance partial thickness tear is also seen involving distal subscapularis. No full-thickness rotator cuff tendon rupture Mild supraspinatus muscle atrophy is seen on sagittal richie ges. Bones and bursae: No bone marrow contusions or fractures. [id number]-kl-pbaoavqy acromioclavicular joint o steoarthritic changes are seen with joint space narrowing, subchondral sclerosis and mild edema and d ownward osteophyte formation depressing on musculotendinous junction of supraspinatus. The acromion d emonstrates conventional anatomy, without an os acromiale. Small amount of subacromial subdeltoid bur tran fluid is seen. Capsule and soft tissues: There is fraying of superior anterior labrum with signal abnormality at 12 to 2:00 position The long head of the biceps tendon demonstrates normal location and morphology. The rotator interval appears normal, without fibrosis. The coracohumeral ligament is normal in thicknes s. IMPRESSION: 1. Moderate grade bursal surface partial-thickness involving distal supraspinatus extending to muscul otendinous junction. Low-grade articular surface partial-thickness tear involving distal infraspinatu s. Low-grade intrasubstance partial thickness tear involving distal subscapularis. No full-thickness rotator cuff tendon rupture. Mild supraspinatus muscle atrophy. 2. Mild to moderate acromioclavicular joint osteoarthritis. No fracture or dislocation. Small amount of subacromial subdeltoid bursal fluid. 3. Suggestion of superior anterior labral tear at 12 to 2:00 position. Reviewed by: Gerhard Son MD on 03/27/2023 9:40 PM PDT Approved by: Gerhard Son MD on 03/27/2023 9:40 PM PDT Station ID: [id number]
== END 2023-03-27 12:38 | disposition home or self-care (01) ==
LOC: DI 12:37
PROVIDERS: ATTEND Nurse Practitioner Family
DX: M75.111 Incomplete rotator cuff tear or rupture of right shoulder, not specified as traumatic (principal); M19.011 Primary osteoarthritis, right shoulder; M62.511 Muscle wasting and atrophy, not elsewhere classified, right shoulder

== ENCOUNTER 2024-01-19 09:23 | Outpatient (CLI) | payer OTHER ==
--- NOTE | 2024-01-19 22:55 | Ultrasound Report ---
PROCEDURE: Abdomen Limited INDICATIONS: ELEVATED LFTS TECHNIQUE: Real-time focused scanning was performed of the abdomen, with image documentation. COMPARISONS: None. FINDINGS: Liver: Increased liver echogenicity, commonly mild hepatic steatosis. Gallbladder: Shadowing gallstone measuring 2.3 x 2.2 x 1.6 cm without wall thickening, pericholecysti c fluid, or abnormal sonographic Barr's. Biliary ducts: Intrahepatic bile ducts are non-dilated. Extrahepatic bile duct caliber measures 2 m m. Normal is 6-7 mm or less in diameter, or 10 mm or less post-cholecystectomy. Pancreas: Visualized portions of the pancreas are sonographically normal. Right kidney: Normal in size and echotexture. Right kidney measures 11.8 cm long. No hydronephrosis or nephrolithiasis. No solid masses. No complex renal cystic lesions which require follow-up. IVC: Intrahepatic inferior vena cava is patent. Miscellaneous: No free abdominal fluid. IMPRESSION: Cholelithiasis without sonographic evidence for acute cholecystitis Hepatic steatosis. Reviewed by: Jonathan Irizarry MD on 01/19/2024 10:54 PM PDT Approved by: Jonathan Irizarry MD on 01/19/2024 10:54 PM PDT Station ID: [id number]
== END 2024-01-19 09:24 | disposition home or self-care (01) ==
LOC: DI 09:23
PROVIDERS: ATTEND Nurse Practitioner Family
DX: K80.20 Calculus of gallbladder without cholecystitis without obstruction (principal); K76.0 Fatty (change of) liver, not elsewhere classified